=== PATIENT | male | born 1945 | race Caucasian/White ===

== ENCOUNTER → 2019-09-13 12:03 | Outpatient (CLI) | payer OTHER, SELFPAY ==
--- NOTE | ~2019-09-13 | CT_ITS ---
EXAMINATION: CT abdomen pelvis wo con DATE: 09/13/2019 12:53 INDICATION: Obstructive and reflux nephropathy TECHNIQUE: Computed tomography (CT) of the abdomen and pelvis was performed without intravenous contr ast. The dose-length product was 247.26 mGy-cm. Automated exposure control and iterative reconstructi on technique were employed. COMPARISON: CT dated 12/02/2018 FINDINGS: Lung bases unremarkable. Heart size normal. No pleural or pericardial effusion. No signific ant vascular abnormality. No lymphadenopathy. The liver, spleen, pancreas, adrenal glands and left kidney are unremarkable. There is an exophytic 3 .7 cm right renal cyst at the upper pole. Gallbladder is present. No lymphadenopathy. No acute osseou s abnormality. There is thickening of the distal sigmoid colon and rectum with with surrounding fatty infiltration, suspicious for colitis/proctitis. No evidence for free air or free fluid.No acute bone or joint abnor mality. IMPRESSION: 1. Abnormal thickening of the distal sigmoid colon and rectum with surrounding inflammation, compatib le with colitis/proctitis. Consider infection and inflammatory bowel disease. Reviewed, dictated and finalized at location B. CTOR OF MUSIC IMPRESSION: 1. Abnormal thickening of the distal sigmoid colon and rectum with surrounding inflammation, compatible with colitis/proctitis. Consider infection and inflamm atory bowel disease.
== END ==
PROVIDERS: PCP Family Medicine; Visit Provider Family Medicine
DX: K59.09 Other constipation (principal); N13.9 Obstructive and reflux uropathy, unspecified
CPT/HCPCS: 74176

== ENCOUNTER 2020-01-29 01:00 | Outpatient (CLI) | payer OTHER, SELFPAY ==
[2020-01-29 18:31] LABS: SARS-CoV-2 RNA PCR Negative
== END 2020-01-29 01:01 | disposition home or self-care (01) ==
LOC: ANHCOVIDDT 01:01
PROVIDERS: PCP Family Medicine; Visit Provider Internal Medicine Gastroenterology
DX: Z01.812 Encounter for preprocedural laboratory examination (principal); Z11.59 Encounter for screening for other viral diseases
CPT/HCPCS: 87635; C9803; U0003

== ENCOUNTER 2020-02-01 01:37 | Day surgery (SDC) | payer OTHER, SELFPAY ==
[2020-01-21 12:26] VITALS: BMI 16.4
[2020-02-01 08:10] VITALS: BP 145/72; PULSE 63; RESP 20; TEMP 37.3; O2SAT 96
[2020-02-01] MEDS: LACTATED RINGERS 1,000 ML 150 ML IV CONT (08:43)
--- NOTE | 2020-02-01 08:55 | PM.HPGS ---
History of Present Illness History of Present Illness Consent: Risks, benefits, and alternatives have been discussed and questions answered. Patient agrees to proceed with procedure. Chief complaint: colitis, dysphagia Narrative: Adam Whelan is a 74 year old male with abnormal CT scan showing possible left sided colitis, also dysphagia. Review of Systems Constitutional: Constitutional: Denies headache(s) and Denies weakness Eyes: Eyes: Denies blurry vision ENT: Reports Normal hearing present, Denies headache(s) and Denies neck pain Cardiovascular: Cardiovascular: Denies chest pain and Denies dyspnea Respiratory: Respiratory: Denies dyspnea Gastrointestinal: Gastrointestinal: Reports no additional gastrointestinal complaints Genitourinary: Genitourinary: Denies dysuria Musculoskeletal: Musculoskeletal: Denies neck pain Integumentary/Breasts: Skin/Breast: Denies dry skin Neurologic: Reports Normal hearing present, Denies headache(s) and Denies weakness Psychiatric: Psychiatric: Denies anxiety Endocrine: Endocrine: Denies change in body appearance Hematologic/Lymphatic: Hematologic/Lymphatic: Denies easy bleeding Allergic/Immunologic: Allergic/Immunologic: Denies urticaria PMFSH Past Medical History Medical History (Updated 09/20/19 @ 14:49 by Jose Mars MD) Colitis Constipation, chronic Dysphagia Malnutrition Family History Family History (Updated 10/22/13 @ 22:43 by DOCTOR UNKNOWN) Mother Patient's mother is Father Patient's father is Social History Social History (Updated 09/20/19 @ 13:51 by Yecenia Castaneda) Social History: Smoking status: Never smoker Second hand tobacco smoke exposure: No Alcohol intake: never Substance use: never Substance use type: does not use Gender identity (if verbalized by the patient): Male Meds Home Medications and Allergies Home Medications Medication Instructions Recorded Confirmed Type linaclotide 290 mcg capsule 290 mcg PO DAILY #90 cap 11/22/19 02/01/20 Rx aspirin 81 mg PO DAILY 01/21/20 02/01/20 History peg 3350-electrolytes 236 240 ml PO Q10M #4000 ml 01/25/20 02/01/20 Rx gram-22.74 gram-6.74 gram-5.86 gram solution tamsulosin 0.4 mg capsule 0.4 mg PO DAILY #30 cap 01/25/20 02/01/20 Rx metoclopramide HCl 10 mg tablet 10 mg PO TIDWMEAL #90 tablet 01/27/20 02/01/20 Rx Allergies Allergy/AdvReac Type Severity Reaction Status Date / Time No Known Allergies Allergy Unverified 02/01/20 08:14 Vital Signs Vital Signs - 24 hr 02/01/20 08:10 Temperature 99.1 F Pulse Rate 63 Respiratory Rate 20 Blood Pressure 145/72 H Pulse Oximetry 96 Exam Const: General: comfortable and no acute distress HENMT: General nose exam: Normal nares present Eyes: General: appearance normal, both eyes and all related structures Neck: Neck: no JVD Resp: Auscultation: clear to auscultation bilaterally Cardio: Rate: regular rate Rhythm: regular rhythm GI: Inspection: non-distended GI Palp: Yes Soft to palpation Skin: General skin exam: normal color Neuro: General: gait normal Speech: normal speech Extrem: General: normal to inspection Psych: Mental Status: mental status grossly normal Assessment and Plan Assessment and plan (1) Colitis: Code(s): K52.9 - Noninfective gastroenteritis and colitis, unspecified Status: Acute Assessment and Plan: will proceed with colonoscopy to assess (2) Dysphagia: Qualifiers: Dysphagia type: unspecified Qualified Code(s): R13.10 - Dysphagia, unspecified Code(s): R13.10 - Dysphagia, unspecified Status: Acute Assessment and Plan: egd to assess if stricture
--- NOTE | 2020-02-01 09:03 | WPDANESEPPF ---
Anes - Initial Pre Proc Eval Procedure: Operation Date: 02/01/20 09:45 Proposed Procedures p Esophagogastroduodenoscopy & Colonoscopy - Jose Mars MD Date/Time: 02/01/20 09:03 Surgeon: Jose Mars MD Pre Op Diagnosis: colitis, dysphagia Patient Data Age: 74 Gender: M Height: 6 ft Weight: 51.6 kg Last Vital Signs Temp 99.1 F 02/01/20 08:10 Pulse 63 02/01/20 08:10 Resp 20 02/01/20 08:10 BP 145/72 H 02/01/20 08:10 Pulse Ox 96 02/01/20 08:10 Allergies Allergy/AdvReac Type Severity Reaction Status Date / Time No Known Allergies Allergy Unverified 02/01/20 08:14 Home Medications Medication Instructions Recorded Confirmed Type linaclotide 290 mcg capsule 290 mcg PO DAILY #90 cap 11/22/19 02/01/20 Rx aspirin 81 mg PO DAILY 01/21/20 02/01/20 History peg 3350-electrolytes 236 240 ml PO Q10M #4000 ml 01/25/20 02/01/20 Rx gram-22.74 gram-6.74 gram-5.86 gram solution tamsulosin 0.4 mg capsule 0.4 mg PO DAILY #30 cap 01/25/20 02/01/20 Rx metoclopramide HCl 10 mg tablet 10 mg PO TIDWMEAL #90 tablet 01/27/20 02/01/20 Rx Patient hx anesthesia problems: none Family hx anesthesia problems: none PMFSH Past Medical History Medical History (Updated 09/20/19 @ 14:49 by Jose Mars MD) Colitis Constipation, chronic Dysphagia Malnutrition Family History Family History (Updated 10/22/13 @ 22:43 by DOCTOR UNKNOWN) Mother Patient's mother is Father Patient's father is Social History Social History (Updated 09/20/19 @ 13:51 by Yecenia Castaneda) Social History: Smoking status: Never smoker Second hand tobacco smoke exposure: No Alcohol intake: never Substance use: never Substance use type: does not use Gender identity (if verbalized by the patient): Male Anes - Eval Final PreProcedure Day of Procedure 02/01/20 09:03 Patient weight: thin Heart: regular rate and rhythm Lungs: clear to auscultation Airway: Mallampati scale class II Neurological: alert and oriented ASA classification: II Emergent: no Anesthetic plan: proceed Anesthesia type and monitoring: general GIVS and standard monitoring Informed Consent: The patient's anesthetic plan and its attendant risks and benefits were discussed with the patient/family/POA. Questions were solicited and answers provided to the satisfaction of the patient/family/POA.
[2020-02-01 09:46] VITALS: BP 105/60; PULSE 51; RESP 15; O2SAT 100
[2020-02-01 09:56] VITALS: BP 127/78; PULSE 58; RESP 17; O2SAT 100
[2020-02-01 10:06] VITALS: BP 131/75; PULSE 62; RESP 21; O2SAT 100
[2020-02-01 10:16] VITALS: BP 126/78; PULSE 67; RESP 21; O2SAT 100
== END 2020-02-01 10:50 | disposition home or self-care (01) ==
PROVIDERS: PCP Family Medicine; Visit Provider Internal Medicine Gastroenterology
PROC: 0DJ08ZZ Inspection of Upper Intestinal Tract, Via Natural or Artificial Opening Endoscopic (ICD-10-PCS; CPT 43235; principal; 2020-02-01 09:45)
DX: K59.09 Other constipation (principal); K64.8 Other hemorrhoids; K57.30 Diverticulosis of large intestine without perforation or abscess without bleeding; R13.10 Dysphagia, unspecified; K29.50 Unspecified chronic gastritis without bleeding; E46 Unspecified protein-calorie malnutrition; Z68.1 Body mass index [BMI] 19.9 or less, adult; Z79.82 Long term (current) use of aspirin
CPT/HCPCS: 45378; 43239; 87635; 88305; C9803; J2001; J2704; J7120; U0003

== ENCOUNTER 2021-07-31 14:52 | Outpatient (CLI) | payer OTHER, SELFPAY ==
--- NOTE | ~2021-07-31 | XR_ITS ---
EXAMINATION: XR abdomen/kub 1V DATE: 07/31/2021 15:28 INDICATION: Constipation. TECHNIQUE: A supine view of the abdomen on 2 radiographs was obtained. COMPARISON: CT abdomen and pelvis 09/13/2019 FINDINGS: There are no dilated loops of bowel. There is a large volume of stool in the colon. IMPRESSION: 1. Nonobstructive bowel gas pattern. Reviewed, dictated and finalized at location A. S AND SERVICE SUPERVISOR
== END 2021-07-31 14:53 | disposition home or self-care (01) ==
PROVIDERS: PCP Family Medicine; Visit Provider Nurse Practitioner Gerontology
DX: K59.09 Other constipation (principal)
CPT/HCPCS: 74018

== ENCOUNTER 2021-08-03 06:51 | Outpatient (CLI) | payer OTHER, SELFPAY ==
[2021-08-03 07:55] LABS: Basophils Absolute Auto 0.1 K/mm3 (0.0-0.1); Basophils Percent Auto 0.8 % (0.2-1.2); Eosinophils Absolute Auto 0.2 K/mm3 (0-0.3); Eosinophils Percent Auto 3.3 % (0-4.4); Hematocrit 41.6 % (42.0-52.0); Hemoglobin 14.1 g/dL (14.0-18.0); Immature Granulocyte Absolute 0.02 K/mm3 (0.00-0.031); Immature Granulocyte Percent A 0.3 % (0-0.5); Lymphocytes Absolute Auto 1.46 K/mm3 (0.9-3.2); Lymphocytes Percent Auto 23.2 % (18.3-44.2); Mean Corpuscular HGB Conc 33.9 g/dl (32-36); Mean Corpuscular Volume 94.3 fl (80-100); Monocytes Absolute Auto 0.8 K/mm3 (0.1-0.6); Monocytes Percent Auto 12.7 % (2.6-8.5); Neutrophils Absolute Auto 3.7 K/mm3 (1.3-6.7); Neutrophils Percent Auto 59.7 % (45.5-73.1); Platelet Count Result 245 k/mm3 (150-375); Red Blood Count 4.41 M/mm3 (4.6-6.20); Red Cell Distribution Width 12.6 % (11.5-14.5); White Blood Count 6.3 K/mm3 (4.5-10.0)
[2021-08-03 08:07] LABS: Alanine Aminotransferase 17 U/L (4-50); Albumin Level 4.2 g/dL (3.5-5.1); Alkaline Phosphatase 70 U/L (38-126); Anion Gap 8 mmol/L (8-16); Aspartate Amino Transferase 23 U/L (17-59); Bilirubin,Total 0.6 mg/dL (0.2-1.3); Blood Urea Nitrogen 17 mg/dL (9-20); Calcium 9.2 mg/dL (8.4-10.2); Carbon Dioxide 31 mmol/L (22-30); Chloride 101 mmol/L (98-107); Estimated Glomerular Filt Rate > 60; Glucose 105 mg/dL (65-110); Potassium 4.1 mmol/L (3.4-5.0); Sodium 140 mmol/L (137-145)
== END 2021-08-03 06:52 | disposition home or self-care (01) ==
LOC: ANHLAB 06:53
PROVIDERS: PCP Family Medicine; Visit Provider Nurse Practitioner Gerontology
DX: K59.09 Other constipation (principal); E46 Unspecified protein-calorie malnutrition
CPT/HCPCS: 36415; 80053; 84443; 85025

== ENCOUNTER 2022-11-25 08:47 | Outpatient (CLI) | payer OTHER, SELFPAY ==
[2022-11-25 09:06] LABS: Basophils Percent Auto 0.8 % (0.2-1.2); Eosinophils Absolute Auto 0.2 K/mm3 (0-0.3); Eosinophils Percent Auto 3.8 % (0-4.4); Hematocrit 40.7 % (42.0-52.0); Hemoglobin 13.4 g/dL (14.0-18.0); Immature Granulocyte Absolute 0.01 K/mm3 (0.00-0.031); Immature Granulocyte Percent A 0.2 % (0-0.5); Lymphocytes Absolute Auto 1.05 K/mm3 (0.9-3.2); Mean Corpuscular HGB Conc 32.9 g/dl (32-36); Mean Corpuscular Hemoglobin 31.5 pg (26-34); Mean Corpuscular Volume 95.5 fl (80-100); Mean Platelet Volume 9.7 fl (7.4-10.4); Monocytes Absolute Auto 0.6 K/mm3 (0.1-0.6); Monocytes Percent Auto 12.3 % (2.6-8.5); Neutrophils Absolute Auto 2.9 K/mm3 (1.3-6.7); Neutrophils Percent Auto 60.9 % (45.5-73.1); Platelet Count Result 227 k/mm3 (150-375); Red Blood Count 4.26 M/mm3 (4.6-6.20); Red Cell Distribution Width 12.6 % (11.5-14.5); White Blood Count 4.8 K/mm3 (4.5-10.0)
[2022-11-25 09:15] LABS: Alanine Aminotransferase 19 U/L (6-50); Albumin Level 4.1 g/dL (3.5-5.1); Alkaline Phosphatase 65 U/L (38-126); Anion Gap 2 mmol/L (8-16); Aspartate Amino Transferase 29 U/L (17-59); Bilirubin,Total 1.2 mg/dL (0.2-1.3); Blood Urea Nitrogen 14 mg/dL (9-20); Carbon Dioxide 32 mmol/L (22-30); Chloride 104 mmol/L (98-107); Cholesterol 139 mg/dL (0-200); Estimated Glomerular Filt Rate > 60; Glucose 93 mg/dL (65-110); HDL Direct 54 mg/dL; Potassium 4.4 mmol/L (3.4-5.0); Sodium 138 mmol/L (137-145); Triglycerides 51 mg/dL (<150)
[2022-11-25 09:26] LABS: LDL Cholesterol Direct 67 mg/dL
[2022-11-30 15:07] LABS: PSA, Free 0.71 ng/mL; PSA, Total 1.9 ng/mL (<=4.0)
== END 2022-11-25 08:48 | disposition home or self-care (01) ==
LOC: ANHLAB 08:47
PROVIDERS: Physician Assistant; PCP Family Medicine; Visit Provider Family Medicine
DX: E78.2 Mixed hyperlipidemia (principal); Z12.5 Encounter for screening for malignant neoplasm of prostate; E46 Unspecified protein-calorie malnutrition; K59.09 Other constipation; R63.4 Abnormal weight loss
CPT/HCPCS: 36415; 80053; 80061; 84153; 84154; 84443; 85025; G0103

== ENCOUNTER 2023-11-28 19:04 | Emergency (ER) | payer OTHER, SELFPAY ==
--- NOTE | ~2023-11-28 | XR_ITS ---
EXAMINATION: XR chest 2V DATE: 11/28/2023 19:47 INDICATION: Dizziness. TECHNIQUE: Frontal and lateral views of the chest were obtained. COMPARISON: Chest 2 views 11/24/2014 FINDINGS: There is no pneumonia, pleural effusion, or pneumothorax. The heart size is normal. IMPRESSION: 1. No acute cardiopulmonary disease. Reviewed, dictated and finalized at location E.
--- NOTE | ~2023-11-28 | CT_ITS ---
EXAMINATION: CT brain wo con DATE: 11/28/2023 19:59 INDICATION: Dizziness. Head pressure. TECHNIQUE: Computed tomography (CT) of the head was performed without intravenous contrast. The mA wa s adjusted according to patient size. Iterative reconstruction technique was employed. The dose-lengt h product was 605.33 mGy-cm. COMPARISON: None FINDINGS: There are scattered areas of low attenuation in the cerebral white matter, which is within normal limits for the patient's age. There is no intracranial hemorrhage, acute infarction, or abnorm al intracranial mass lesion. The ventricles are normal in size. The orbits are normal. There is mild mucosal thickening in the paranasal sinuses. The mastoid air cells are normal. IMPRESSION: 1. Normal aging brain. Reviewed, dictated and finalized at location E. IMPRESSION: 1. Normal aging brain.
[2023-11-28 19:05] VITALS: BP 146/77; PULSE 60; RESP 16; TEMP 36.6; O2SAT 100
[2023-11-28 19:11] VITALS: PULSE 60
--- NOTE | 2023-11-28 19:11 | ECG_ITS ---
SEE SCANNED COPY FOR CONFIRMED REPORT MTDD
[2023-11-28 19:22] LABS: Basophils Absolute Auto 0.1 K/mm3 (0.0-0.1); Basophils Percent Auto 1.1 % (0.2-1.2); Eosinophils Absolute Auto 0.2 K/mm3 (0-0.3); Eosinophils Percent Auto 3.9 % (0-4.4); Hematocrit 40.6 % (42.0-52.0); Hemoglobin 13.6 g/dL (14.0-18.0); Immature Granulocyte Absolute 0.01 K/mm3 (0.00-0.031); Immature Granulocyte Percent A 0.2 % (0-0.5); Lymphocytes Absolute Auto 1.45 K/mm3 (0.9-3.2); Lymphocytes Percent Auto 26.8 % (18.3-44.2); Mean Corpuscular HGB Conc 33.5 g/dl (32-36); Mean Corpuscular Hemoglobin 31.9 pg (26-34); Mean Corpuscular Volume 95.3 fl (80-100); Mean Platelet Volume 9.5 fl (7.4-10.4); Monocytes Absolute Auto 0.8 K/mm3 (0.1-0.6); Monocytes Percent Auto 13.9 % (2.6-8.5); Neutrophils Absolute Auto 2.9 K/mm3 (1.3-6.7); Neutrophils Percent Auto 54.1 % (45.5-73.1); Platelet Count Result 227 k/mm3 (150-375); Red Blood Count 4.26 M/mm3 (4.6-6.20); Red Cell Distribution Width 12.8 % (11.5-14.5); White Blood Count 5.4 K/mm3 (4.5-10.0)
[2023-11-28 19:32] LABS: Alanine Aminotransferase 16 U/L (6-50); Albumin Level 4.1 g/dL (3.5-5.1); Alkaline Phosphatase 60 U/L (38-126); Anion Gap 5 mmol/L (4-12); Aspartate Amino Transferase 24 U/L (17-59); Bilirubin,Total 0.6 mg/dL (0.2-1.3); Blood Urea Nitrogen 11 mg/dL (9-20); Calcium 9.3 mg/dL (8.4-10.2); Carbon Dioxide 30 mmol/L (22-30); Chloride 105 mmol/L (98-107); Estimated CRCL calculation 60 ml/min; Estimated Glomerular Filt Rate > 60; Glucose 131 mg/dL (65-110); Potassium 3.7 mmol/L (3.4-5.0); Sodium 140 mmol/L (137-145)
--- NOTE | 2023-11-28 19:35 | ED.DIZZY ---
HPI - Dizziness General Chief Complaint: Dizziness Stated Complaint: Dizzy, RODRÍGUEZ, HTN Time Seen by Provider: 11/28/23 19:20 History of Present Illness HPI Narrative: 78-year-old male presents to the emergency department for evaluation of acute onset of dizziness. Patient states just prior to arrival he had onset of some dizziness where he felt like he was drifting to the right. While at rest patient denies any dizziness or current headache. 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 Patient denies any recent seizure activity. Patient denies any recent falls or injuries. Patient states he did have some recent constipation but took MiraLax and this helped to resolve his symptoms. Related Data Home Medications Medication Instructions Recorded Confirmed aspirin 81 mg chewable tablet 81 mg PO DAILY 01/21/20 11/25/23 [id number] acid 0.4 1 tablet PO DAILY 10/04/21 11/25/23 mg-lycopene 300 mcg-lutein 250 mcg tablet (Complete Multivitamin Adult 50 Plus) Allergies Allergy/AdvReac Type Severity Reaction Status Date / Time No Known Allergies Allergy Verified 11/25/23 15:09 Review of Systems Review of Systems: All systems reviewed & are unremarkable except as noted in HPI and below PMFSH Past Medical History Medical History Colitis Colon cancer screening Constipation, chronic Dysphagia Gastritis Malnutrition Family History Family History Mother Patient's mother is Father Patient's father is Social History Social History Social History: Smoking status: Never smoker Second hand tobacco smoke exposure: No Alcohol intake: never Substance use: never Substance use type: does not use Lack of Transportation: No Lack of Food: Never True Current Housing: I Have Housing Concerned About Future Housing: No Difficulty Paying Gas/Electric Bills: No Difficulty Paying for Meds: No Currently Unemployed: YES Education: Decline to Answer Difficulty w/ Childcare or Family Care: No Living arrangements: with family Occupation/Education: retired Gender identity (if verbalized by the patient): Male Sexual Orientation (if Verbalized by the Patient): Straight or Heterosexual Exam Narrative: APPEARANCE: Well appearing, no pain, no distress, well-nourished. HEAD: normocephalic, atraumatic. EYES: PERRLA/EOMI, conjunctivae clear. NOSE: Normal no drainage EARS:TMS clear with good light reflex. THROAT: Pharynx clear, no exudate. NECK: Supple. No adenopathy, no masses. RESPIRATORY: Airway patent, respirations nonlabored. Clear to auscultation bilaterally, no rales, rhonchi, wheezing. CARDIOVASCULAR: Regular rate and rhythm without murmurs rubs or gallops. ABDOMINAL: Soft, nontender, nondistended, normal bowel sounds MUSCULOSKELETAL: Moves all extremities. Strength/ROM intact, No edema, No calf tenderness. NEURO: Alert. Cranial nerves II through XII intact. Good gait. Good coordination SKIN: Warm, dry. Normal Color Course Course Emergency Course: Patient felt improved with treatment Vital Signs Vital signs: Vital Signs Temperature 98 F 11/28/23 19:05 Pulse Rate 60 11/28/23 19:05 Respiratory Rate 16 11/28/23 19:05 Blood Pressure 146/77 H 11/28/23 19:05 Pulse Oximetry 100 11/28/23 19:05 Oxygen Delivery Room Air 11/28/23 19:05 Temperature 98 F 11/28/23 19:05 Pulse Rate 52 L 11/28/23 21:55 Respiratory Rate 18 11/28/23 21:55 Blood Pressure 156/78 H 11/28/23 21:55 Pulse Oximetry 99 11/28/23 21:55 Oxygen Delivery Room Air 11/28/23 19:05 MDM - Dizziness MDM Narrative Medical decision making narrative: 78-year-old male presents to the emergency department for evaluation for vertig
[2023-11-28] MEDS: MECLIZINE HCL 25 MG TABLET PO (20:00)
[2023-11-28] MEDS: SODIUM CHLORIDE 0.9% IV 1,000 ML 250 ML IV CONT (20:01)
[2023-11-28 20:44] VITALS: BP 134/70; PULSE 52
[2023-11-28 20:45] VITALS: BP 131/83; BP 138/79; PULSE 50; PULSE 58
[2023-11-28 20:52] LABS: Appearance Urine Clear (Clear); Bilirubin Urine Negative (Negative); Blood Urine Negative (Negative); Color Urine Yellow (Yellow); Glucose Urine UA Negative (Negative); Ketones Urine Negative (Negative); Leukocyte Esterase Ur Negative LEU/UL (Negative); Nitrate Urine Negative (Negative); Protein Urine Negative (Negative); Specific Grav Ur 1.008 (1.001-1.035); Urobilinogen Urine 0.2 mg/dL (<2.0)
[2023-11-28 20:57] LABS: Add Urine Microscopic? NO
[2023-11-28 21:55] VITALS: BP 156/78; PULSE 52; RESP 18; O2SAT 99
== END 2023-11-28 22:04 | disposition home or self-care (01) ==
PROVIDERS: Emergency Provider Emergency Medicine; PCP Family Medicine
DX: H81.10 Benign paroxysmal vertigo, unspecified ear (principal); Z79.82 Long term (current) use of aspirin
CPT/HCPCS: 36415; 70450; 71046; 80053; 81003; 85025; 93005; 96360; 99284; A9270; J7030

== ENCOUNTER 2024-01-09 14:35 | Outpatient (CLI) | payer OTHER, SELFPAY ==
[2024-01-09 17:32] LABS: Iron 127 ug/dL (49-181)
[2024-01-09 17:34] LABS: Alanine Aminotransferase 16 U/L (6-50); Albumin Level 4.2 g/dL (3.5-5.1); Alkaline Phosphatase 66 U/L (38-126); Anion Gap 8 mmol/L (4-12); Aspartate Amino Transferase 27 U/L (17-59); Bilirubin,Total 0.9 mg/dL (0.2-1.3); Blood Urea Nitrogen 22 mg/dL (9-20); Calcium 9.3 mg/dL (8.4-10.2); Carbon Dioxide 27 mmol/L (22-30); Chloride 104 mmol/L (98-107); Estimated Glomerular Filt Rate > 60; Glucose 112 mg/dL (65-110); Potassium 4.5 mmol/L (3.4-5.0); Sodium 139 mmol/L (137-145)
[2024-01-09 17:45] LABS: Percent Iron Saturation 48 % (20-50)
[2024-01-09 17:50] LABS: Free T4 Free Thyroxine 0.92 ng/mL (0.78-2.19)
== END 2024-01-09 14:36 | disposition home or self-care (01) ==
LOC: ANHLAB 14:38
PROVIDERS: PCP Family Medicine; Visit Provider Physician Assistant
DX: R42 Dizziness and giddiness (principal); D64.9 Anemia, unspecified; E07.9 Disorder of thyroid, unspecified; E46 Unspecified protein-calorie malnutrition
CPT/HCPCS: 36415; 80053; 82607; 82728; 83540; 83550; 84439; 84443

== ENCOUNTER 2024-05-05 19:35 | Emergency (ER) | payer OTHER, SELFPAY ==
--- NOTE | ~2024-05-05 | CT_ITS ---
EXAMINATION: CT brain wo con DATE: 05/05/2024 20:20 INDICATION: Dizziness TECHNIQUE: Computed tomography (CT) of the head was performed without intravenous contrast. Sagittal and coronal reconstructions were performed. The mA was adjusted according to patient size. Iterative reconstruction technique was employed. The dose-length product was 681.00 mGy-cm. COMPARISON: head CT dated 11/28/2023 FINDINGS: No acute intracranial hemorrhage, acute infarction or abnormal extra axial fluid collection. There is mild scattered white matter hypoattenuation consistent with chronic small vessel ischemic disease. V entricles are normal and symmetric. No mass/mass effect. Small mucous retention cyst in the bilateral maxillary sinuses. The orbits and mastoid air cells are normal. IMPRESSION: 1. No acute intracranial process. 2. Mild scattered white matter hypoattenuation consistent with chronic small vessel ischemic disease. Reviewed, dictated and finalized at location A. IMPRESSION: 1. No acute intracranial process. 2. Mild scattered white matter hypoattenuation consistent with chronic small ve ssel ischemic disease.
[2024-05-05 19:34] VITALS: BP 118/71; PULSE 61; RESP 16; TEMP 36.9; O2SAT 99
[2024-05-05 19:43] VITALS: PULSE 64
--- NOTE | 2024-05-05 19:43 | ED_ITS ---
HPI - Dizziness General Chief Complaint: Dizziness Stated Complaint: Dizziness Time Seen by Provider: 05/05/24 19:42 History of Present Illness HPI Narrative: Pt was sitting at home at the computer and turned his head to the left and got very dizzy. Pt tried to stand up but was very unsteady on his feet. Pt says the dizziness improves when he is still. Pt denies RODRÍGUEZ but has fullness in back of head. Pt denies any numbness or one sided weakness. Related Data Home Medications Medication Instructions Recorded Confirmed aspirin 81 mg chewable tablet 81 mg PO DAILY 01/21/20 01/07/24 wpbrasvm-kxo-thhyf acid 0.4 1 tablet PO DAILY 10/04/21 01/07/24 mg-lycopene 300 mcg-lutein 250 mcg tablet (Complete Multivitamin Adult 50 Plus) Allergies Allergy/AdvReac Type Severity Reaction Status Date / Time No Known Allergies Allergy Verified 01/14/24 13:56 Review of Systems Review of Systems: All systems reviewed & are unremarkable except as noted in HPI and below PMFSH Past Medical History Medical History Colitis Colon cancer screening Constipation, chronic Dysphagia Gastritis Malnutrition Family History Family History Mother Patient's mother is Father Patient's father is Social History Social History Social History: Smoking status: Never smoker Second hand tobacco smoke exposure: No Alcohol intake: never Substance use: never Substance use type: does not use Do You Feel Safe in your Home?: Yes Lack of Transportation: No Lack of Food: Never True Current Housing: I Have Housing Concerned About Future Housing: No Difficulty Paying Gas/Electric Bills: No Difficulty Paying for Meds: No Currently Unemployed: YES Education: Don't Know Difficulty w/ Childcare or Family Care: No Living arrangements: with family Occupation/Education: retired Gender identity (if verbalized by the patient): Male Sexual Orientation (if Verbalized by the Patient): Straight or Heterosexual Exam Const: General: healthy appearing and no acute distress Nutritional Appearance: well nourished Orientation/consciousness: patient oriented x3 Limitations: no limitations HENMT: Head: normal to inspection Ears: TM's normal bilaterally Mouth: Yes Normal oral and palatal mucosa present Eyes: Pupils: Equal, round and reactive pupils present EOM: EOMs intact bilaterally Neck: Neck: normal visual inspection and no lymphadenopathy Resp: Effort & Inspection: normal respiratory effort Auscultation: clear to auscultation bilaterally Cardio: Rate: regular rate Rhythm: regular rhythm GI: Auscultation: normal bowel sounds Skin: General skin exam: normal color Rashes: no rashes Wounds: no wounds Neuro: General: patient oriented x3, moves all extremities, no meningeal signs, no focal motor deficits and CN's II-XI intact bilaterally Cranial nerves: Yes Nystagmus present horizontal Speech: normal speech Other: dizziness reproduced with turning head to left, resolves when still Extrem: General: normal to inspection Psych: Mental Status: mental status grossly normal Affect: normal affect Attitude: cooperative Course Vital Signs Vital signs: Vital Signs Temperature 98.4 F 05/05/24 19:34 Pulse Rate 61 05/05/24 19:34 Respiratory Rate 16 05/05/24 19:34 Blood Pressure 118/71 05/05/24 19:34 Pulse Oximetry 99 05/05/24 19:34 Oxygen Delivery Room Air 05/05/24 19:34 Temperature 98.4 F 05/05/24 19:34 Pulse Rate 62 05/05/24 20:45 Respiratory Rate 18 05/05/24 20:45 Blood Pressure 141/81 H 05/05/24 20:45 Pulse Oximetry 99 05/05/24 20:45 Oxygen Delivery Room Air 05/05/24 19:34 MDM - Dizziness MDM Narrative Medical decision making narrative: Pt presents with dizziness precipatated by movement of head to left and resolves when still. Likely vertigo so will try meclizine ( tool 25 mg at home) Pt had vertigo a month ago which resolved. Given age will check CT and labs to rule out elecrolyte distrubance or anemia or CVA. CT and labs unremarkable. Pt feels better after meclizine. seems like vertigo. Lab Data 05/05/24 19:46 05/05/24 19:46 Labs: Lab Results 05/05/24 Range/Units 19:46 WBC 5.4 (4.5-10.0) K/mm3 RBC 4.33 L (4.6-6.20) M/mm3 Hgb 14.0 (14.0-18.0) g/dL Hct 41.4 L (42.0-52.0) % MCV 95.6 (80-100) fl MCH 32.3 (26-34) pg MCHC 33.8 (32-36) g/dl RDW 12.5 (11.5-14.5) % Plt Count 228 (150-375) k/mm3 MPV 9.7 (7.4-10.4) fl Immature Gran % (Auto) 0.2 (0-0.5) % Neut % (Auto) 52.5 (45.5-73.1) % Lymph % (Auto) 28.2 (18.3-44.2) % [place] % (Auto) 15.3 H (2.6-8.5) % Eos % (Auto) 2.9 (0-4.4) % Baso % (Auto) 0.9 (0.2-1.2) % Lymph # (Auto) 1.53 (0.9-3.2) K/mm3 [place] # (Auto) 0.8 H (0.1-0.6) K/mm3 Eos # (Auto) 0.2 (0-0.3) K/mm3 Baso # (Auto) 0.1 (0.0-0.1) K/mm3 Abs Immat Gran (auto) 0.01 (0.00-0.031) K/mm3 Absolute Neuts (auto) 2.9 (1.3-6.7) K/mm3 Absolute Nucleated RBC 0.000 (0.0-0.012) K/mm3 Nucleated RBC % 0.0 (0.0-0.2) % Sodium 138 (137-145) mmol/L Potassium 4.0 (3.4-5.0) mmol/L Chloride 102 (98-107) mmol/L Carbon Dioxide 28 (22-30) mmol/L Anion Gap 8 (4-12) mmol/L BUN 16 (9-20) mg/dL Creatinine 0.80 (0.7-1.3) mg/dL Estim Creat Clear Calc 58 ml/min Estimated GFR > 60 (59 - ) Glucose 107 (65-110) mg/dL Calcium 9.1 (8.4-10.2) mg/dL Total Bilirubin 1.0 (0.2-1.3) mg/dL AST 23 (17-59) U/L ALT 18 (6-50) U/L Alkaline Phosphatase 67 (38-126) U/L Total Protein 7.0 (6.3-8.2) g/dL Albumin 4.2 (3.5-5.1) g/dL Discharge Plan Discharge Clinical Impression: Vertigo Patient Disposition: Home, Self-Care Condition: Improved Instructions: Antibiotic Form, Vertigo (ED) Prescriptions: New meclizine 50 mg tablet 50 mg PO TID Qty: 20 0RF No Action omeprazole 20 mg capsule,delayed release(DR/EC) 20 mg PO DAILY 90 Days Qty: 90 3RF Complete MV Adult 50 Plus 0.4-300-250 mg-mcg-mcg tablet 1 tablet PO DAILY aspirin 81 mg Tablet,Chewable 81 mg PO DAILY meclizine 25 mg tablet 25 mg PO BID PRN (Reason: dizziness) Qty: 14 0RF finasteride 5 mg tablet See Rx Instructions .ROUTE .COMPLEX Qty: 100 0RF Dose Instruction: TAKE 1 TABLET BY MOUTH DAILY Rx Instructions: TAKE 1 TABLET BY MOUTH DAILY lubiprostone 24 mcg capsule See Rx Instructions .ROUTE .COMPLEX Qty: 180 0RF Dose Instruction: TAKE 1 CAPSULE BY MOUTH TWICE DAILY Rx Instructions: TAKE 1 CAPSULE BY MOUTH TWICE DAILY tamsulosin 0.4 mg capsule See Rx Instructions .ROUTE .COMPLEX Qty: 100 1RF Dose Instruction: TAKE 1 CAPSULE BY MOUTH DAILY Rx Instructions: TAKE 1 CAPSULE BY MOUTH DAILY Follow-up/Referrals: Gemma Galloway MD [Primary Care Provider] -
[2024-05-05] MEDS: MECLIZINE HCL 25 MG TABLET PO (19:51)
[2024-05-05 19:53] LABS: Basophils Absolute Auto 0.1 K/mm3 (0.0-0.1); Basophils Percent Auto 0.9 % (0.2-1.2); Eosinophils Absolute Auto 0.2 K/mm3 (0-0.3); Eosinophils Percent Auto 2.9 % (0-4.4); Hematocrit 41.4 % (42.0-52.0); Immature Granulocyte Absolute 0.01 K/mm3 (0.00-0.031); Immature Granulocyte Percent A 0.2 % (0-0.5); Lymphocytes Absolute Auto 1.53 K/mm3 (0.9-3.2); Lymphocytes Percent Auto 28.2 % (18.3-44.2); Mean Corpuscular HGB Conc 33.8 g/dl (32-36); Mean Corpuscular Hemoglobin 32.3 pg (26-34); Mean Corpuscular Volume 95.6 fl (80-100); Mean Platelet Volume 9.7 fl (7.4-10.4); Monocytes Absolute Auto 0.8 K/mm3 (0.1-0.6); Monocytes Percent Auto 15.3 % (2.6-8.5); Neutrophils Absolute Auto 2.9 K/mm3 (1.3-6.7); Neutrophils Percent Auto 52.5 % (45.5-73.1); Platelet Count Result 228 k/mm3 (150-375); Red Blood Count 4.33 M/mm3 (4.6-6.20); Red Cell Distribution Width 12.5 % (11.5-14.5); White Blood Count 5.4 K/mm3 (4.5-10.0)
[2024-05-05 20:03] LABS: Alanine Aminotransferase 18 U/L (6-50); Albumin Level 4.2 g/dL (3.5-5.1); Alkaline Phosphatase 67 U/L (38-126); Anion Gap 8 mmol/L (4-12); Aspartate Amino Transferase 23 U/L (17-59); Blood Urea Nitrogen 16 mg/dL (9-20); Calcium 9.1 mg/dL (8.4-10.2); Carbon Dioxide 28 mmol/L (22-30); Chloride 102 mmol/L (98-107); Estimated CRCL calculation 58 ml/min; Estimated Glomerular Filt Rate > 60; Glucose 107 mg/dL (65-110); Sodium 138 mmol/L (137-145)
[2024-05-05 20:45] VITALS: BP 141/81; PULSE 62; RESP 18; O2SAT 99
== END 2024-05-05 21:35 | disposition home or self-care (01) ==
PROVIDERS: Emergency Provider Emergency Medicine; PCP Family Medicine
DX: R42 Dizziness and giddiness (principal); K59.09 Other constipation; Z79.82 Long term (current) use of aspirin; Z79.899 Other long term (current) drug therapy
CPT/HCPCS: 36415; 70450; 80053; 85025; 99284; A9270

== ENCOUNTER 2025-06-13 14:05 | Outpatient (CLI) | payer OTHER, SELFPAY ==
[2025-06-13 14:36] LABS: Hematocrit 42.9 % (42.0-52.0); Hemoglobin 14.3 g/dL (14.0-18.0); Mean Corpuscular HGB Conc 33.3 g/dl (32-36); Mean Corpuscular Hemoglobin 32.1 pg (26-34); Mean Corpuscular Volume 96.2 fl (80-100); Platelet Count Result 223 k/mm3 (150-375); Red Blood Count 4.46 M/mm3 (4.6-6.20); White Blood Count 6.0 K/mm3 (4.5-10.0)
[2025-06-13 14:45] LABS: Hemoglobin A1C 5.2 % (<5.7)
[2025-06-13 14:59] LABS: Alanine Aminotransferase 19 U/L (6-50); Albumin Level 4.5 g/dL (3.5-5.1); Alkaline Phosphatase 74 U/L (38-126); Anion Gap 4 mmol/L (4-12); Aspartate Amino Transferase 33 U/L (17-59); Bilirubin,Total 1.7 mg/dL (0.2-1.3); Blood Urea Nitrogen 16 mg/dL (9-20); Calcium 9.4 mg/dL (8.4-10.2); Carbon Dioxide 30 mmol/L (22-30); Chloride 101 mmol/L (98-107); Estimated Glomerular Filt Rate > 60; Glucose 98 mg/dL (65-110); Potassium 4.1 mmol/L (3.4-5.0); Sodium 135 mmol/L (137-145); Total Protein 7.7 g/dL (6.3-8.2)
[2025-06-13 15:30] LABS: Thyroid Stimulating Hormone 2.570 uIU/mL (0.465-4.680)
== END 2025-06-13 14:06 | disposition home or self-care (01) ==
PROVIDERS: PCP Family Medicine; Visit Provider Physician Assistant Medical
DX: R73.01 Impaired fasting glucose (principal); R41.0 Disorientation, unspecified; Z00.00 Encounter for general adult medical examination without abnormal findings; R42 Dizziness and giddiness; Z68.1 Body mass index [BMI] 19.9 or less, adult
CPT/HCPCS: 36415; 80053; 83036; 84443; 85027

== ENCOUNTER 2025-07-01 10:44 | Emergency (ER) | payer OTHER, SELFPAY ==
[2025-07-01] VITALS (11 sets, daily range): BP systolic 114–150; BP diastolic 66–87; PULSE 52–60; RESP 11–22; TEMP 36.7–37.3; O2SAT 98–100
--- NOTE | ~2025-07-01 | CT_ITS ---
EXAMINATION: CT brain wo con DATE: 07/01/2025 13:02 INDICATION: Dizziness TECHNIQUE: Computed tomography (CT) of the head was performed without intravenous contrast. The dose-length product was 681.00 mGy-cm. COMPARISON: May 05, 2024 FINDINGS: No gross intracranial mass effect or hemorrhage. Chronic microvascular ischemic appearing white matter changes with no large acute ischemic event. Calvarial structures appear stable. Small left maxillary sinus mucocele or mucous retention cyst again noted. IMPRESSION: 1. No gross intracranial mass effect or hemorrhage. Reviewed, dictated and finalized at location A. COURSE RANGER
--- NOTE | ~2025-07-01 | XR_ITS ---
Examination: XR chest 2V Clinical History: dizziness Comparison: 11/28/2023 Technique: PA and Lateral Findings: Cardiomediastinal silhouette normal size and configuration. Lungs clear. Hyperinflation. No acute bony abnormality. IMPRESSION: 1. No acute cardiopulmonary findings. Reviewed, dictated and finalized at location R. ION WRITER
--- NOTE | 2025-07-01 10:51 | ECG_ITS ---
Test Date: 2025-07-01 10:56:26 Measurements Intervals Lehr Rate: 53 P: 81 RI: 187 QRS: 67 QRSD: 101 T: 70 QT: 397 QTc: 373 Interpretive Statements SINUS BRADYCARDIA BASELINE ARTIFACT- I, II, AVR, AVL BORDERLINE ECG No previous ECG available for comparison Electronically Signed On 07-01-2025 11:05:55 PENSIONHOLDER INFORMATION CLERK by Leighton Gentile D.O.
[2025-07-01 11:05] LABS: Hematocrit 40.8 % (42.0-52.0); Hemoglobin 13.8 g/dL (14.0-18.0); Immature Granulocyte Percent A 0.2 % (0-0.5); Lymphocytes Absolute Auto 0.78 K/mm3 (0.9-3.2); Mean Corpuscular HGB Conc 33.8 g/dl (32-36); Mean Corpuscular Hemoglobin 32.2 pg (26-34); Mean Corpuscular Volume 95.1 fl (80-100); Nucleated Red Blood Cells Absolute Auto 0.000 K/mm3 (0.0-0.012); Nucleated Red Blood Cells Perc 0.0 % (0.0-0.2); Platelet Count Result 206 k/mm3 (150-375); Red Blood Count 4.29 M/mm3 (4.6-6.20); White Blood Count 4.5 K/mm3 (4.5-10.0)
[2025-07-01 11:16] LABS: Alanine Aminotransferase 17 U/L (6-50); Albumin Level 4.0 g/dL (3.5-5.1); Alkaline Phosphatase 64 U/L (38-126); Anion Gap 5 mmol/L (4-12); Aspartate Amino Transferase 26 U/L (17-59); Bilirubin,Total 1.3 mg/dL (0.2-1.3); Blood Urea Nitrogen 16 mg/dL (9-20); Calcium 9.6 mg/dL (8.4-10.2); Carbon Dioxide 28 mmol/L (22-30); Chloride 104 mmol/L (98-107); Estimated CRCL calculation 61 ml/min; Estimated Glomerular Filt Rate > 60; Glucose 147 mg/dL (65-110); Potassium 3.8 mmol/L (3.4-5.0); Sodium 137 mmol/L (137-145); Total Protein 7.0 g/dL (6.3-8.2)
--- NOTE | 2025-07-01 12:34 | ED_ITS ---
HPI - General Adult General Chief complaint: Dizziness Stated complaint: headache/pressure x 2 weeks Time Seen by Provider: 07/01/25 11:23 History of Present Illness HPI narrative: Adam Whelan is a 72-year-old male who presents today with reports of having an off and on feeling lightheaded off balance for about a week. He states that it happens sometimes when he gets up to ambulate it gets better with rest or sometimes while he is sitting there he will get a wave of feeling lightheaded as well. He denies having any symptoms at this time. He states that he has been having an off and on headache a for the past week. He also feels that he is has not decreased hearing out of his right ear and that might be clogged and that could be related to his symptoms. He denies any chest pain denies shortness of breath denies fevers. He states he has had a decreased appetite but has been trying to make himself eat. No vomiting no belly pain. Related Data Home Medications ?Medication ?Instructions ?Recorded ?Confirmed ?Last Taken ?Type aspirin 81 mg chewable tablet 81 mg PO DAILY 01/21/20 06/02/25 01/31/20 05:00 History [id number] acid 0.4 1 tablet PO DAILY 10/04/21 06/02/25 Unknown History mg-lycopene 300 mcg-lutein 250 mcg tablet (Complete Multivitamin Adult 50 Plus) Allergies Allergy/AdvReac Type Severity Reaction Status Date / Time No Known Allergies Allergy Verified 07/01/25 10:54 Review of Systems 2 Review of Systems: All systems reviewed & are unremarkable except as noted in HPI and below PMFSH Past Medical History Medical History Colon cancer screening Gastritis Dysphagia Colitis Malnutrition Constipation, chronic Family History Family History Mother Patient's mother is Father Patient's father is Social History Social History Social History: Smoking status: Never smoker Second hand tobacco smoke exposure: No Alcohol intake: never Substance use: never Substance use type: does not use Lack of Transportation: No Lack of Food: Never True Current Housing: I Have Housing Concerned About Future Housing: No Difficulty Paying Gas/Electric Bills: No Difficulty Paying for Meds: No Currently Unemployed: YES Education: Don't Know Difficulty w/ Childcare or Family Care: No Living arrangements: with family Occupation/Education: retired Gender identity (if verbalized by the patient): Male Sexual Orientation (if Verbalized by the Patient): Straight or Heterosexual Exam 2 Narrative: GENERAL: Well-appearing, well-nourished, and in no acute distress. HEAD: Normocephalic, atraumatic. EYES: PERRLA and EOMI. ENT: Nares clear, no rhinorrhea or epistaxis. Mucous membranes moist. Oropharynx without tonsillar hypertrophy exudate or other lesions. Left ear canal completely obstructed with cerumen, right ear canal with mild cerumen TM appears to be intact with when I can see NECK: Supple. No adenopathy or masses. No carotid bruits or JVD CHEST: Clear to auscultation. No respiratory distress. No wheezes rales or rhonchi HEART: Regular rate and rhythm. No murmur heard. Normal peripheral pulses. ABDOMEN: Soft, nontender, nondistended, normal active bowel sounds. EXTREMITIES: Normal range of motion. No edema. SKIN: Warm, dry, no rash. NEURO: No focal deficits. Alert and oriented x3. PSYCH: Normal mood and affect. Course Vital Signs Vital signs: Vital Signs Temperature 37.3 C 07/01/25 10:49 Pulse Rate 56 L 07/01/25 10:49 Respiratory Rate 16 07/01/25 10:49 Blood Pressure 141/69 H 07/01/25 10:49 Pulse Oximetry 100 07/01/25 10:49 Oxygen Delivery Room Air 07/01/25 10:49 Temperature 36.7 C 07/01/25 15:31 Pulse Rate 57 L 07/01/25 15:31 Respiratory Rate 18 07/01/25 15:31 Blood Pressure 134/72 07/01/25 15:31 Pulse Oximetry 99 07/01/25 15:31 Oxygen Delivery Room Air 07/01/25 10:49 MDM MDM Narrative Medical decision making narrative: 80-year-old who presents today with complaints of having this off and on feeling lightheaded off balance that he since kind of comes on out of nowhere. He states denies a comes on when he tried upper walk but he also has been getting some of the symptoms whenever he is sitting down resting. Although sitting down resting after does happen while he is walking does improve his symptoms. He denies any chest pain, palpitations, shortness of breath, fever, cough. Denies any vision changes. He also states that he has had this off and on headache sort of like wrapping around his head off and on. He denies any current symptoms at this time denies headache denies vision changes denies feeling lightheaded or dizzy at this time. He also endorses that he feels that he has decreased hearing out of his right ear and kind of felt like a squeak like maybe there is something in his right ear canal and want to have that checked out to see if that may be causing his symptoms. Concern for benign positional vertigo, orthostatic hypotension, cardiac ischemia, cardiac arrhythmia, brain abnormality, anemia, impacted cerumen Plan to check a cardiac workup, head CT while treating him with a L of normal saline and meclizine p.o. CBC her no acute leukocytosis hemodynamically stable, and she glucose 147 otherwise unremarkable, two negative troponin, UA unremarkable, head CT no acute findings, chest x-ray no acute cardiopulmonary findings, orthostatics done and were negative Patient also had a clearing of his cerumen from both of his ears large amounts removed from the right side moderate from the left ear canal is now clear he states he does think he is feeling better have any episodes of feeling the lightheaded or dizzy her headaches. Patient updated on his imaging and lab results and plan for discharge home with continuation of she fluids at home follow-up the primary care doctor and return if he develops any new or worsening symptoms. He and his visitor that is with him agree with this plan and feel comfortable with this Differential Diagnosis Differential Diagnosis: benign positional vertigo, orthostatic hypotension, cardiac ischemia, cardiac arrhythmia, brain abnormality, anemia Lab Data MDM Lab Attestation statement: I personally reviewed the patient's lab results. 07/01/25 10:59 07/01/25 10:59 Labs: Lab Results 07/01/25 07/01/25 07/01/25 Range/Units 10:59 13:29 14:17 WBC 4.5 (4.5-10.0) K/mm3 RBC 4.29 L (4.6-6.20) M/mm3 Hgb 13.8 L (14.0-18.0) g/dL Hct 40.8 L (42.0-52.0) % MCV 95.1 (80-100) fl MCH 32.2 (26-34) pg MCHC 33.8 (32-36) g/dl RDW 12.6 (11.5-14.5) % Plt Count 206 (150-375) k/mm3 MPV 10.1 (7.4-10.4) fl Immature Gran % (Auto) 0.2 (0-0.5) % Neut % (Auto) 68.6 (45.5-73.1) % Lymph % (Auto) 17.5 L (18.3-44.2) % [place] % (Auto) 10.1 H (2.6-8.5) % Eos % (Auto) 2.7 (0-4.4) % Baso % (Auto) 0.9 (0.2-1.2) % Lymph # (Auto) 0.78 L (0.9-3.2) K/mm3 [place] # (Auto) 0.5 (0.1-0.6) K/mm3 Eos # (Auto) 0.1 (0-0.3) K/mm3 Baso # (Auto) 0.0 (0.0-0.1) K/mm3 Abs Immat Gran (auto) 0.01 (0.00-0.031) K/mm3 Absolute Neuts (auto) 3.1 (1.3-6.7) K/mm3 Absolute Nucleated RBC 0.000 (0.0-0.012) K/mm3 Nucleated RBC % 0.0 (0.0-0.2) % Sodium 137 (137-145) mmol/L Potassium 3.8 (3.4-5.0) mmol/L Chloride 104 (98-107) mmol/L Carbon Dioxide 28 (22-30) mmol/L Anion Gap 5 (4-12) mmol/L BUN 16 (9-20) mg/dL Creatinine 0.72 (0.7-1.3) mg/dL Estim Creat Clear Calc 61 ml/min Estimated GFR > 60 (59 - ) Glucose 147 H (65-110) mg/dL Calcium 9.6 (8.4-10.2) mg/dL Total Bilirubin 1.3 (0.2-1.3) mg/dL AST 26 (17-59) U/L ALT 17 (6-50) U/L Alkaline Phosphatase 64 (38-126) U/L Troponin I < 0.012 < 0.012 (0.000-0.034) ng/mL Total Protein 7.0 (6.3-8.2) g/dL Albumin 4.0 (3.5-5.1) g/dL Urine Color Yellow (Yellow) Urine Appearance Clear (Clear) Urine pH 8.0 (5.0-9.0) Ur Specific [place] 1.009 (1.001-1.035) Urine Protein Negative (Negative) mg/dL Urine Glucose (UA) Negative (Negative) mg/dL Urine Ketones Negative (Negative) mg/dL Ur Blood (Man) Negative (Negative) Urine Nitrate Negative (Negative) Urine Bilirubin Negative (Negative) Urine Urobilinogen 0.2 (<2.0) mg/dL Leukocyte Esterase Rfl Negative (Negative) HUGO/UL Imaging Data Radiologist's impression: ITS Impressions Chest X-Ray 07/01/25 11:36 IMPRESSION: 1. No acute cardiopulmonary findings. Head CT 07/01/25 13:16 IMPRESSION: 1. No gross intracranial mass effect or hemorrhage. Discharge Plan Discharge Clinical Impression: Bilateral impacted cerumen Clicking tinnitus Qualifiers: Laterality: left Qualified Code(s): H93.12 - Tinnitus, left ear Patient Disposition: Home Condition: Stable Instructions: Antibiotic Form Additional Instructions: continue your home medications as ordered also make sure drinking plenty of fluids to stay hydrated please follow-up with ENT as we discussed have your right ear evaluated again to make sure it is improving if he develops any new or worsening symptoms return to the ER. Patient Language: Mohawk Prescriptions: No Action omeprazole 20 mg capsule,delayed release(DR/EC) 20 mg PO DAILY 90 Days Qty: 90 3RF azelastine 137 mcg (0.1 %) spray,non-aerosol 137 mcg intranasal Q12H Qty: 30 0RF Rx Instructions: administer into each nostril fluticasone propionate 50 mcg/actuation spray,suspension 1 spray intranasal DAILY Qty: 16 0RF Rx Instructions: administer into each nostril tamsulosin 0.4 mg capsule See Rx Instructions .ROUTE .COMPLEX Qty: 100 1RF Dose Instruction: TAKE 1 CAPSULE BY MOUTH DAILY Rx Instructions: TAKE 1 CAPSULE BY MOUTH DAILY Complete MV Adult 50 Plus 0.4-300-250 mg-mcg-mcg tablet 1 tablet PO DAILY aspirin 81 mg Tablet,Chewable 81 mg PO DAILY meclizine 50 mg tablet 50 mg PO TID Qty: 20 0RF finasteride 5 mg tablet See Rx Instructions .ROUTE .COMPLEX Qty: 100 0RF Dose Instruction: TAKE 1 TABLET BY MOUTH DAILY Rx Instructions: TAKE 1 TABLET BY MOUTH DAILY lubiprostone 24 mcg capsule See Rx Instructions .ROUTE .COMPLEX Qty: 180 1RF Dose Instruction: TAKE 1 CAPSULE BY MOUTH TWICE DAILY Rx Instructions: TAKE 1 CAPSULE BY MOUTH TWICE DAILY Follow-up/Referrals: Jasper Malagon MD [Primary Care Provider, Family Practice] - 3 Days Hilario Johnson MD [Physician, Ear, Nose, Throat] - 3 Days Time of Disposition: 15:09
[2025-07-01] MEDS: SODIUM CHLORIDE 0.9% IV 1,000 ML 999 ML IV CONT (12:40)
[2025-07-01] MEDS: MECLIZINE HCL 25 MG TABLET PO (12:40)
[2025-07-01 13:12] LABS: Troponin I < 0.012 ng/mL (0.000-0.034)
--- NOTE | 2025-07-01 13:43 | ECG_ITS ---
Test Date: 2025-07-01 14:20:49 Measurements Intervals [place] Rate: 55 P: 75 GA: 168 QRS: 73 QRSD: 92 T: 69 QT: 404 QTc: 389 Interpretive Statements SINUS BRADYCARDIA INCOMPLETE RIGHT BUNDLE BRANCH BLOCK MINIMAL Q WAVES- INF/LAT LEADS BASELINE ARTIFACT- I, II, AVR, AVL, V1-V2 BORDERLINE ECG Compared to ECG 07/01/2025 10:56:26 No significant changes Electronically Signed On 07-01-2025 14:23:07 WAREHOUSE ASSISTANT by Leighton Gentile D.O.
[2025-07-01 13:48] LABS: Add Urine Microscopic? NO; Appearance Urine Clear (Clear); Glucose Urine UA Negative (Negative); Leukocyte Esterase Ur Negative LEU/UL (Negative); Nitrate Urine Negative (Negative); Specific Grav Ur 1.009 (1.001-1.035)
[2025-07-01] MEDS: HYDROGEN PEROXIDE 3% SOLN(*SP) 473 ML BOTTLE (14:30)
[2025-07-01 14:47] LABS: Troponin I < 0.012 ng/mL (0.000-0.034)
== END 2025-07-01 15:32 | disposition home or self-care (01) ==
PROVIDERS: Emergency Medicine; Emergency Provider Nurse Practitioner Family; PCP Family Medicine
DX: H61.23 Impacted cerumen, bilateral (principal); H93.12 Tinnitus, left ear; R00.1 Bradycardia, unspecified; Z79.82 Long term (current) use of aspirin
CPT/HCPCS: 36415; 70450; 71046; 80053; 81003; 84484; 85025; 93005; 96360; 99284; A9270; J7030